=== PATIENT | male | born 1990 | race Caucasian/White ===

== ENCOUNTER 2017-11-27 10:52 | Emergency (ER) | payer OTHER ==
[~2017-11-27] VITALS: Ht 188 cm; Wt 78.0 kg
[~2017-11-27 10:52] MED LIST: ANAPROX DS1 TAB PO; FLEXERIL10 MG PO; MEDROL DOSEPAK1 PAC PO; PERCOCET 325 MG1 TA2 PO; TRAMADOL HCL50 M1 PO
[2017-11-27 11:02] VITALS: BP 142/90
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
[2017-11-27] MEDS ORDERED: TYLENOL WITH C1 EACH PO (12:33)
[2017-11-27] MEDS ORDERED: AZITHROMYCIN250 M1 PO (12:33)
== END 2017-11-27 12:48 ==
LOC: ERH 10:52
DX: S02.81XA Fracture of other specified skull and facial bones, right side, initial encounter for closed fracture (principal); Y04.0XXA Assault by unarmed brawl or fight, initial encounter; Y93.9 Activity, unspecified; Y92.9 Unspecified place or not applicable